=== PATIENT | female | born 1950 | race Caucasian/White ===

== ENCOUNTER 2016-12-13 15:17 | Emergency (ER) | payer BC ==
[2016-12-13 15:26] VITALS: BP 132/85
--- NOTE | 2016-12-13 15:53 | UC ---
Eye Complaint HPI - HPI Summary HPI Summary: Patient got a squirt of astroglide in the right eye, 1 week ago, eye has remained irritated and feels tired, denies pain - History of Current Complaint Chief Complaint: UCEye Stated Complaint: EYE IRRITATION Time Seen by Provider: 12/13/16 15:36 Hx Obtained From: Patient ?: No Onset/Duration: Sudden Onset, Lasting Days Timing: Constant Severity Initially: Mild Severity Currently: Mild Location of Injury: Conjunctiva, Sclera Character: Dull Associated Signs And Symptoms: Positive: Drainage (Clear) - Risk Factors Penetrating Injury Risk Factor: Negative Globe Rupture Risk Factors: Negative Acute Glaucoma Risk Factors: Eye Inflammation - Allergies/Home Medications Allergies/Adverse Reactions: Allergies Allergy/AdvReac Type Severity Reaction Status Date / Time Latex Allergy Rash Verified 12/13/16 15:27 Home Medications: Home Medications Aripiprazole [Abilify] 5 mg PO 12/13/16 [History] Ascorbic Acid TAB* [Vitamin C TAB*] 1,500 mg PO DAILY 12/13/16 [History Confirmed 12/13/16] Aspirin [Aspirin Adult Low Strengt] 81 mg PO 12/13/16 [History] Atorvastatin* [Lipitor 10 MG*] 10 mg PO 1700 12/13/16 [History Confirmed ] Calcium 600 mg PO 12/13/16 [History] Cholecalciferol [Vitamin D 400] 400 unit PO 12/13/16 [History] Diclofenac Sodium (Topical) [Diclofenac Sodium] 1 % TD 12/13/16 [History] Gabapentin CAP(*) [Neurontin 300 CAP(*)] 300 mg PO BID 12/13/16 [History Confirmed 12/13/16] Kklfyrsfuym-Fmfejvbceae-Hkd C- [Glucosamine Chondroitin] 1 tab PO 12/13/16 [ History] Hydrochlorothiazide [Microzide-] 25 mg PO DAILY 12/13/16 [History Confirmed 07/31] Lactobacillus [Probiotic] 1 cap PO 12/13/16 [History] Lorazepam [Ativan 1 MG TAB] 1 mg PO BEDTIME 12/13/16 [History Confirmed 12/13/16 ] Multiple Vitamins W/ Minerals [Multivitamin Women 50+] 1 tab PO 12/13/16 [ History] [place]-3 Fatty Acids [Fish Oil] 1,200 mg PO 12/13/16 [History] Potassium Chlor TAB (NF) [Kaon-Cl-10 TAB (NF)] 20 meq PO 12/13/16 [History] Prasterone (DHEA) CAP (NF) [Dhea Cap (NF)] 25 mg PO ONCE 12/13/16 [History Confirmed 12/13/16] Ranitidine HCl [Eql Acid Commodity Supervisor Maximum] 150 mg PO 12/13/16 [History] Sumatriptan Succinate [Imitrex] 100 mg PO 12/13/16 [History] Topiramate [Qudexy Xr] 100 mg PO 12/13/16 [History] Venlafaxine ER (NF) [Effexor ER (NF)] 150 mg PO DAILY 12/13/16 [History Confirmed 12/13/16] Venlafaxine HCl [Venlafaxine HCl ER-] 37.5 mg PO DAILY 12/13/16 [History Confirmed 12/13/16] Vitamin B Complex CAP* [B Complex CAP*] 1 cap PO DAILY 12/13/16 [History Confirmed 12/13/16] traMADol TAB* [Ultram*] 50 mg PO Q6HR PRN 12/13/16 [History Confirmed 12/13/16] traZODone TAB* [Desyrel TAB*] 150 mg PO BEDTIME 12/13/16 [History Confirmed 07/31] PMH/Surg Hx/FS Hx/Imm Hx Previously Healthy: Yes - Surgical History Surgical History: Yes Surgery Procedure, Year, and Place: breast bx, nose, rt oopherectomy, appy, ganglion cyst removed - Family History Known Family History: Positive: Cardiac Disease Negative: Hypertension - Social History Alcohol Use: Daily Alcohol Amount: wine Substance Use Type: None Smoking Status (MU): Never Smoked Tobacco Review of Systems Constitutional: Negative Skin: Negative Eyes: Eye Redness ENT: Negative Respiratory: Negative Cardiovascular: Negative Gastrointestinal: Negative Genitourinary: Negative Motor: Negative Neurovascular: Negative Musculoskeletal: Negative Neurological: Negative Psychological: Negative All Other Systems Reviewed And Are Negative: Yes Physical Exam Triage Information Reviewed: Yes Appearance: Well-Appearing, Well-Nourished, Pain Distress Vital Signs: Initial Vital Signs Temp 97.6 F 12/13/16 15:22 Pulse 119 12/13/16 15:22 Resp 18 12/13/16 15:22 BP 132/85 12/13/16 15:22 Pulse Ox 98 12/13/16 15:22 Vital Signs Reviewed: Yes Eye Exam: Normal Eyes: Positive: Conjunctiva Inflamed, Discharge, Other: - left cataract seen on fundoscopic exam, right sclera is red and irritated, PERRLA, EOMI, vision is at baseline, ENT Exam: Normal ENT: Positive: Normal ENT inspection, Hearing grossly normal, TMs normal Dental Exam: Normal Neck exam: Normal Neck: Positive: Supple, Nontender, No Lymphadenopathy Respiratory Exam: Normal Respiratory: Positive: Chest non-tender, Lungs clear, Normal breath sounds Cardiovascular Exam: Normal Cardiovascular: Positive: RRR, No Murmur, Pulses Normal Abdominal Exam: Normal Abdomen Description: Positive: Nontender, No Organomegaly, Soft Bowel Sounds: Positive: Present Musculoskeletal Exam: Normal Musculoskeletal: Positive: Strength Intact, ROM Intact, No Edema Neurological Exam: Normal Neurological: Positive: Alert, Muscle Tone Normal Psychological Exam: Normal Skin Exam: Normal Eye Complaint Course/Dx - Course Course Of Treatment: hx obtained, exam performed, meds reviewed, poison control center called and no recommendations for treatment at this time due to the length of time from initial incident. Recommend follow up with her Eye doctor when she returns to her home in [place] next week. erythromycin cream prescribed for prevention of infection. - Differential Dx/Diagnosis Differential Diagnosis/HQI/PQRI: Conjunctivitis, Corneal Abrasion, Keratitis, Periorbital Cellulitis, Uveitis Provider Diagnoses: chemical irritant in eye. conjunctivitis Discharge - Discharge Plan Condition: Stable Disposition: HOME Referrals: Meliton Andres MD [Medical Doctor] - Additional Instructions: 1. Use the erythromycin cream three times a day for the next 5 days. 2. I recommend follow up with an opthamologist sooner than later, I know you are out of town, but if not responding to the treatment I have givena referral to a local office.
== END 2016-12-13 16:15 | disposition home or self-care (01) ==
LOC: UCEAST 15:17
DX: H10.211 Acute toxic conjunctivitis, right eye (principal)
CPT/HCPCS: 99202; G0463